=== PATIENT | male | born 1970 | race Caucasian/White ===

== ENCOUNTER 2021-05-04 18:05 | Outpatient (CLI) | payer OTHER | END 2021-05-04 18:06 | disposition critical access hospital (66) | LOC: EMS 18:05 | DX: R55 Syncope and collapse (principal) | CPT/HCPCS: A0425; A0427 ==

== ENCOUNTER 2021-05-04 18:23 | Emergency (ER) | payer OTHER ==
[2021-05-04] MEDS: SODIUM CHLORIDE 0.9% 1,000 ML IV STA ×2 (18:44→19:21)
[2021-05-04 18:52] LABS: BASOPHILS # (AUTO) 0.1 10^3/uL (0.0-0.1); BASOPHILS % (AUTO) 0.6 %; EOSINOPHILS # (AUTO) 0.1 10^3/uL (0.0-0.7); EOSINOPHILS % (AUTO) 0.6 %; HCT - HEMATOCRIT 44.2 % (42.0-52.0); HGB - HEMOGLOBIN 15.7 g/dL (14.0-18.0); LYMPHOCYTES # (AUTO) 1.8 10^3/uL (1.5-3.5); LYMPHOCYTES % (AUTO) 18.6 %; MEAN CORPUSCULAR HEMOGLOBIN 34.7 pg (27.0-31.0); MEAN CORPUSCULAR HGB CONC 35.5 g/dL (32.0-36.0); MEAN CORPUSCULAR VOLUME 97.8 fL (80.0-94.0); MEAN PLATELET VOLUME 10.6 fL (7.4-11.4); MONOCYTES # (AUTO) 0.7 10^3/uL (0.0-1.0); MONOCYTES % (AUTO) 7.6 %; NEUTROPHILS # (AUTO) 6.8 10^3/uL (1.5-6.6); NEUTROPHILS % (AUTO) 72.1 %; PLT - PLATELET COUNT 205 10^3/uL (130-450); RED BLOOD COUNT 4.52 10^6/uL (4.70-6.10); RED CELL DISTRIBUTION WIDTH 12.1 % (12.0-15.0); WHITE BLOOD COUNT 9.5 x10^3/uL (4.8-10.8)
[2021-05-04 19:06] LABS: BILIRUBIN,TOTAL 0.8 mg/dL (0.2-1.0); CALCIUM 9.2 mg/dL (8.5-10.3); POTASSIUM 3.6 mmol/L (3.5-5.0); TOTAL PROTEIN 7.5 g/dL (6.7-8.2)
--- NOTE | 2021-05-04 19:16 | XRAY Report ---
PROCEDURE: Chest 1 View X-Ray INDICATIONS: Chest pain TECHNIQUE: One view of the chest was acquired. COMPARISON: None. FINDINGS: Surgical changes and devices: Postsurgical changes are seen in the right distal clavicle.. Lungs and pleura: No pleural effusions or pneumothorax. Lungs are clear. Mediastinum: Mediastinal contours appear normal. Heart size is normal. Bones and chest wall: No suspicious bony lesions. Overlying soft tissues appear unremarkable. IMPRESSION: No acute cardiopulmonary abnormality. Reviewed by: Jarrod Bradford MD on 05/04/2021 7:15 PM PDT Approved by: Jarrod Bradford MD on 05/04/2021 7:15 PM PDT Station ID: [id number]
--- NOTE | 2021-05-04 19:27 | ED Physician Documentation ---
History of Present Illness - Stated complaint Stated Complaint: SYNCOPE - Chief complaint Chief Complaint: Cardiac - History obtained from History obtained from: Patient, EMS - History of Present Illness Timing: Today Pain level max: 0 Pain level now: 0 - Additonal information Additional information: Patient is a 50-year-old male who is brought in by EMS today for syncope. He states he has been outside working all day in the heat. He has not been drinking any liquids. He states he started to get cramping in his bilateral legs, then felt nauseated, lightheaded and dizzy. He apparently had a syncopal event at that time. The caught him and lowered him to the floor. No head, neck, back pain. He states he currently is feeling better. Was hypotensive with EMS. No chest pain. Worse with standing, better with lying down Review of Systems Constitutional: denies: Fever, Chills Nose: denies: Rhinorrhea / runny nose, Congestion Cardiac: denies: Chest pain / pressure, Palpitations Respiratory: denies: Dyspnea, Cough, Wheezing GI: reports: Nausea Skin: denies: Rash Musculoskeletal: denies: Neck pain, Back pain Neurologic: denies: Headache PD PAST MEDICAL HISTORY - Past Medical History Past Medical History: No - Past Surgical History Past Surgical History: No - Allergies Allergies/Adverse Reactions: Allergies Allergy/AdvReac Type Severity Reaction Status Date / Time No Known Drug Allergies Allergy Verified 05/04/21 18:28 - Living Situation Living Situation: reports: With family Living Arrangement: reports: At home - Social History Does the pt smoke?: No Smoking Status: Never smoker Does the pt have substance abuse?: No PD ED PE NORMAL - Vitals Vital signs reviewed: Yes - General General: Alert and oriented X 3, No acute distress, Well developed/nourished - HEENT HEENT: PERRL, Ears normal, Moist mucous membranes, Pharynx benign - Neck Neck: Supple, no meningeal sign, No JVD, No bruit - Cardiac Cardiac: RRR, No murmur, Strong equal pulses - Respiratory Respiratory: No respiratory distress, Clear bilaterally - Abdomen Abdomen: Soft, Non tender, Non distended - Back Back: No spinal TTP - Derm Derm: Warm and dry - Extremities Extremities: No edema, No calf tenderness / cord - Neuro Neuro: Alert and oriented X 3, 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, No motor deficit, No sensory deficit, Normal speech Eye Opening: Spontaneous Motor: Obeys Commands Verbal: Oriented GCS Score: 15 - Psych Psych: Normal mood, Normal affect Results - Vitals Vitals: Oxygen O2 Source Room air - EKG (time done) 1824 Rate: Rate (enter#) (62) Rhythm: NSR Haynes: Normal Intervals: Normal HI QRS: Normal Ischemia: Normal ST segments - Labs Labs: Laboratory Tests 05/04/21 05/04/21 05/04/21 18:46 18:46 18:46 WBC 9.5 RBC 4.52 L Hgb 15.7 Hct 44.2 MCV 97.8 H MCH 34.7 H MCHC 35.5 RDW 12.1 Plt Count 205 MPV 10.6 Neut # (Auto) 6.8 H Lymph # (Auto) 1.8 Preble # (Auto) 0.7 Eos # (Auto) 0.1 Baso # (Auto) 0.1 Absolute Nucleated RBC 0.00 Nucleated RBC % 0.0 Sodium 137 Potassium 3.6 Chloride 99 L Carbon Dioxide 27 Anion Gap 11.0 BUN 20 Creatinine 1.0 Estimated GFR (MDRD) 80 L Glucose 109 H Calcium 9.2 Total Bilirubin 0.8 AST 26 ALT 26 Alkaline Phosphatase 34 L Troponin I High Sens 18.7 Total Protein 7.5 Albumin 5.0 Globulin 2.5 Albumin/Globulin Ratio 2.0 Lipase 24 - Rads (name of study) cxr Radiology: Final report received, EMP read contemporaneously, See rad report (no acute disease) PD MEDICAL DECISION MAKING - ED course Complexity details: reviewed results, re-evaluated patient, considered differential (No ST elevation [place], no aortic dissection, no PE, no tension pneumothorax, no aortic aneurysm), d/w patient ED course: 50-year-old male with what appears to be vasovagal syncope. Feels much better after IV fluids. Ambulating without difficulty. No longer orthostatic. No further leg cramps. No significant lab abnormalities. No evidence of cardiac arrhythmia, pulmonary embolus, ACS. Patient counseled regarding signs and symptoms for which I believe and urgent re-evaluation would be necessary. Patient with good understanding of and agreement to plan and is comfortable going home at this time This document was made in part using voice recognition software. While efforts are made to proofread this document, sound alike and grammatical errors may occur. Departure - Departure Disposition: 01 Home, Self Care Clinical Impression: Dehydration Syncope Qualifiers: Syncope type: unspecified Qualified Code(s): R55 - Syncope and collapse Condition: Good Instructions: ED Dehydration, ED Syncope Vasovagal Follow-Up: your,doctor in 1 week [Other] Comments: Make sure you are drinking plenty of water at home. Follow-up with your doctor for further care. Return if you worsen. There are no significant findings on your EKG, chest x-ray or laboratory testing tonight. The IV fluids improved your dizziness and muscle cramps. Discharge Date/Time: 05/04/21 20:10
[2021-05-04 20:02] VITALS: BP 131/86
== END 2021-05-04 20:10 | disposition home or self-care (01) ==
LOC: EDUNIT# → ED 18:23
DX: E86.0 Dehydration (principal); R55 Syncope and collapse
CPT/HCPCS: 36415; 80053; 83690; 84484; 85025; 93005; 96360; 99284

== ENCOUNTER 2022-07-21 12:32 | Emergency (ER) | payer OTHER ==
[2022-07-21 12:54] VITALS: BP 143/95
[2022-07-21] MEDS ORDERED: LIDOCAINE-MPF 2% 5 ML VIAL ONE ×2 (14:24→14:45)
[2022-07-21] MEDS ORDERED: LIDOCAINE 2% 10 ML MDV SUBQ ONE ×2 (14:30→14:40)
--- NOTE | 2022-07-21 14:36 | XRAY Report ---
PROCEDURE: Finger(s) RT INDICATIONS: R index finger vs router TECHNIQUE: AP hand, 3 views of the sec finger(s) acquired. COMPARISON: None FINDINGS: Bones: There is amputation of the distal aspect of the second distal phalanx tuft. No suspicious bony lesions. Soft tissues: No suspicious soft tissue calcifications. IMPRESSION: Amputation of the distal second phalanx tuft. Reviewed by: Wandy Andrew MD on 07/21/2022 2:35 PM PDT Approved by: Wandy Andrew MD on 07/21/2022 2:35 PM PDT Station ID: [id number]
--- NOTE | 2022-07-21 14:59 | ED Physician Documentation ---
History of Present Illness - Stated complaint Stated Complaint: R FINGER LAC - Chief complaint Chief Complaint: Laceration - History obtained from History obtained from: Patient - History of Present Illness Timing: Today Pain level max: 9 Pain level now: 9 - Additonal information Additional information: Patient is a 51-year-old male who presents to the emergency department with a right index finger laceration. This was injured by a router today at work. Better with pressure, nothing makes it worse. Tetanus up-to-date. No numbness or tingling. Review of Systems Constitutional: denies: Fever, Chills Skin: denies: Rash Musculoskeletal: denies: Neck pain, Back pain Neurologic: denies: Headache PD PAST MEDICAL HISTORY - Past Medical History Past Medical History: Yes - Past Surgical History Past Surgical History: No - Present Medications Home Medications: Ambulatory Orders Medication Instructions Recorded Confirmed HYDROcod/ACETAM 5/325 [Hewitt 5/325] 1 - 2 ea PO Q6H PRN #14 tablet 07/21/22 cephALEXin [Keflex] 500 mg PO Q6H #28 cap 07/21/22 - Allergies Allergies/Adverse Reactions: Allergies Allergy/AdvReac Type Severity Reaction Status Date / Time No Known Drug Allergies Allergy Verified 05/04/21 18:28 - Social History Does the pt smoke?: No Smoking Status: Never smoker Does the pt have substance abuse?: No PD ED PE NORMAL - Vitals Vital signs reviewed: Yes - General General: Alert and oriented X 3, No acute distress - Derm Derm: Warm and dry - Extremities Extremities: Other (Laceration to the tip of the right index finger, portions of skin are missing, injury to the distal portion of the nail. No nailbed injury NVI) - Neuro Neuro: Alert and oriented X 3 - Psych Psych: Normal mood, Normal affect Results - Vitals Vitals: Vital Signs - 24 hr 07/21/22 12:50 Temperature 36.3 C L Heart Rate 61 Respiratory 18 Rate Blood Pressure 143/95 H O2 Saturation 95 Oxygen O2 Source Room air - Rads (name of study) R finger xray Radiology: Final report received, EMP read contemporaneously, See rad report Procedures - Laceration (location) R index finger Length in cm: 1.5 Wound type: Curved, Irregular, Into subcut fat, Clean Neurovascular status: Sensory intact, Motor intact Tendon involvement: Tendon intact Anesthesia: Lidocaine 2% Wound preparation: Irrigated copiously NS, Wound explored, To the base Skin layer closure: Nylon, Interrupted, Size #-0 - enter number (4) Other: Patient tolerated well, No complications, Neurovascular intact, Tetanus UTD PD MEDICAL DECISION MAKING - ED course Complexity details: considered differential, d/w patient ED course: The wound was loosely approximated. The large amount of skin that was removed by the router was unable to be closed completely primarily. Neurovascularly intact. He does have a distal tuft fracture on x-ray. We will place on antibiotics and have him follow-up with orthopedics. Warnings of infection and instructions on wound care given at bedside. Patient counseled regarding signs and symptoms for which I believe and urgent re-evaluation would be necessary. Patient with good understanding of and agreement to plan and is comfortable going home at this time This document was made in part using voice recognition software. While efforts are made to proofread this document, sound alike and grammatical errors may occur. Departure - Departure Disposition: 01 Home, Self Care Clinical Impression: Finger laceration Qualifiers: Encounter type: initial encounter Finger: index finger Damage to nail status: with damage Foreign body presence: without foreign body Laterality: right Qualified Code(s): S61.310A - Laceration without foreign body of right index finger with damage to nail, initial encounter Phalanx, distal fracture of finger Qualifiers: Encounter type: initial encounter Finger: index finger Fracture type: open Fracture alignment: nondisplaced Laterality: right Qualified Code(s): S62.660B - Nondisplaced fracture of distal phalanx of right index finger, initial encounter for open fracture Condition: Good Instructions: ED Fx Finger Open Follow-Up: [facility] [Provider Group] - Within 1 week Prescriptions: cephALEXin [Keflex] 500 mg PO Q6H #28 cap HYDROcod/ACETAM 5/325 [Hewitt 5/325] 1 - 2 ea PO Q6H PRN #14 tablet PRN Reason: Pain Comments: Your prescriptions were sent to [facility] in [place]. Please take all antibiotics until gone. Keep the wound clean. The sutures will need to be removed in about 10 to 14 days. It is recommended that you make a follow-up with orthopedics to ensure proper healing. If you are having redness, swelling or drainage from the wound, please return here for repeat evaluation. Amputation of the distal second phalanx tuft. Discharge Date/Time: 07/21/22 15:14
== END 2022-07-21 15:14 | disposition home or self-care (01) ==
LOC: ED 12:32
DX: S62.660B Nondisplaced fracture of distal phalanx of right index finger, initial encounter for open fracture (principal); W29.8XXA Contact with other powered hand tools and household machinery, initial encounter; Y99.0 Civilian activity done for income or pay
CPT/HCPCS: 1040M; 12001; 73140; 99282; 99283

== ENCOUNTER 2022-07-28 09:23 | Outpatient (CLI) | payer OTHER ==
--- NOTE | 2022-07-29 09:05 | XRAY Report ---
PROCEDURE: Finger(s) RT INDICATIONS: RIGHT INDEX FINGER PAIN TECHNIQUE: AP hand, 2 views of the second finger(s) acquired. COMPARISON: X-ray second finger, 07/14. FINDINGS: Bones: There is a defect in the tip of the second distal phalanx, consistent with amputation. No kristina picious bony lesions. Soft tissues: No suspicious soft tissue calcifications. Mild soft tissue swelling over the tip of th e second finger. IMPRESSION: Amputation of the distal second finger. Reviewed by: Jose Cleveland MD on 07/29/2022 9:04 AM PDT Approved by: Jose Cleveland MD on 07/29/2022 9:04 AM PDT Station ID: [id number]
== END 2022-07-28 09:24 | disposition home or self-care (01) ==
LOC: DI.WOS 09:23
PROVIDERS: ATTEND Orthopaedic Surgery
DX: M79.644 Pain in right finger(s) (principal); Z89.021 Acquired absence of right finger(s)

== ENCOUNTER 2022-09-12 16:30 | Outpatient (CLI) | payer OTHER ==
--- NOTE | 2022-09-12 17:02 | XRAY Report ---
PROCEDURE: Finger(s) RT INDICATIONS: RIGHT INDEX FINGER FRACTURE TECHNIQUE: AP hand, 2 views of the second finger(s) acquired. COMPARISON: 07/28/2022 FINDINGS: Bones: Osseous defect involving second distal phalangeal tip is again seen unchanged in appearance fr om previous study. Adjacent smaller bony fragments are also noted in this region. No new fracture or dislocation. Finger alignment is unchanged from prior. No suspicious bony lesions. Soft tissues: No suspicious soft tissue calcifications. IMPRESSION: Stable appearing deformity involving second distal phalangeal tuft. No new fracture or dislocation. F rene alignment is anatomic. Reviewed by: Sam Saleem MD on 09/12/2022 5:01 PM PST Approved by: Sam Saleem MD on 09/12/2022 5:01 PM PST Station ID: [id number]
== END 2022-09-12 16:31 | disposition home or self-care (01) ==
LOC: DI.WOS 16:30
PROVIDERS: ATTEND Physician Assistant Surgical
DX: S62.630D Displaced fracture of distal phalanx of right index finger, subsequent encounter for fracture with routine healing (principal)